=== PATIENT | female | born 1960 | race Caucasian/White ===

== ENCOUNTER → 2018-07-09 09:03 | Outpatient (CLI) | payer MEDICARE, SELFPAY ==
[2018-07-09 09:32] LABS: Add Manual Diff / Slide Review NO; Basophils Absolute Auto 0 /uL (0-100); Basophils Percent Auto 0.5 % (0-2); Eosinophils Absolute Auto 300 /uL (0-450); Hematocrit 38.7 % (36-46); Hemoglobin 12.8 g/dL (12.0-16.0); Lymphocytes Absolute Auto 1700 /uL (1100-4500); Lymphocytes Percent Auto 31.1 % (25-40); Mean Corpuscular HGB Conc 33.1 % (30-36); Mean Corpuscular Hemoglobin 29.3 PG (26-34); Mean Corpuscular Volume 88.4 fL (80-100); Monocytes Absolute Auto 500 /uL (0-900); Monocytes Percent Auto 8.8 % (3-14); Neutrophils Absolute Auto 3000 /uL (1500-7000); Neutrophils Percent Auto 54.6 % (50-75); Platelet Count 227 X10^3/uL (150-400); Red Blood Cell Count 4.37 X10^6/uL (4.0-5.2); White Blood Cell Count 5.5 X10^3/uL (4.5-11.0)
[2018-07-09 10:10] LABS: Alanine Aminotransferase 19 IU/L (9-52); Albumin 4.3 g/dL (3.5-5.0); Albumin Globulin Ratio 1.4 (1.0-2.8); Alkaline Phosphatase 66 U/L (38-126); Aspartate Aminotransferase 20 IU/L (14-36); Bilirubin Total 0.5 mg/dL (0.2-1.3); Blood Urea Nitrogen 17 mg/dL (7-17); Calcium 9.5 mg/dL (8.4-10.2); Carbon Dioxide 30 mmol/L (22-32); Chloride 101 mmol/L (98-107); Cholesterol 199 mg/dL (140-199); Estimated Glomerular Filt Rate 56.9 mL/min (>60); Globulin 3.1 g/dL (1.7-4.1); Glucose 94 mg/dL (70-100); HDL Cholesterol 69 mg/dL (40-60); HEMOLYSIS < 15 (0-50); LDL Cholesterol Calculated 112 mg/dL (<100); Potassium 4.7 mmol/L (3.4-5.1); Sodium 137 mmol/L (137-145); Total Protein 7.4 g/dL (6.3-8.2); Triglycerides 91 mg/dL (35-150)
[2018-07-09 10:36] LABS: Thyroid Stimulating Hormone 1.16 uIU/mL (0.47-4.68)
== END ==
PROVIDERS: PCP Internal Medicine; Visit Provider Internal Medicine
DX: F33.1 Major depressive disorder, recurrent, moderate (principal); F41.1 Generalized anxiety disorder; E78.5 Hyperlipidemia, unspecified
CPT/HCPCS: 36415; 80053; 80061; 84443; 85025

== ENCOUNTER → 2018-10-22 07:51 | Outpatient (CLI) | payer MEDICARE, SELFPAY ==
--- NOTE | 2018-10-22 | DI.MG.S_ITS ---
BILATERAL DIGITAL SCREENING MAMMOGRAM 3D/2D WITH CAD: 10/22/2018 CLINICAL: Routine screening. Family history of breast cancer. Comparison is made to exams dated: 05/21/2016 mammogram, 02/26/2015 mammogram - [facility], 05/26/2013 mammogram, 05/19/2012 mammogram, and 11/15/2010 mammogram - [facility]. The tissue of both breasts is heterogeneously dense. This may lower the sensitivity of mammography. Current study was also evaluated with a Computer Aided Detection (CAD) system. No significant masses, calcifications, or other findings are seen in either breast. There has been no significant interval change. IMPRESSION: NEGATIVE There is no mammographic evidence of malignancy. A 1 year screening mammogram is recommended. This exam was interpreted at Station ID: [id number]. NOTE: For mammograms, a report in lay terms will be sent to the patient. Approximately 15% of breast malignancies will not be visualized mammographically. In the management of a palpable breast mass, a negative mammogram must not discourage biopsy of a clinically suspicious lesion. Electronically Signed By: Jonn douglass/kacie:10/22/2018 12:51:33 letter sent: Normal Exam ACR BI-RADS Category 1: Negative 3341F
== END ==
PROVIDERS: PCP Internal Medicine; Visit Provider Internal Medicine
DX: Z12.31 Encounter for screening mammogram for malignant neoplasm of breast (principal); Z80.3 Family history of malignant neoplasm of breast
CPT/HCPCS: 77063; 77067

== ENCOUNTER → 2019-12-26 08:31 | Outpatient (CLI) | payer MEDICARE, SELFPAY ==
--- NOTE | 2019-12-26 08:43 | DI.MG.S_ITS ---
Patient Name: LIZBETH CROWDER date: 1960 Sex: F Attending Physician: Juan Francisco Indications: Date: 12/26/2019 08:37 At the request of: MARIOLA COHN Procedure: MM screening mammo BI BILATERAL DIGITAL SCREENING MAMMOGRAM 3D/2D WITH CAD: 12/26/2019 CLINICAL: Routine screening. Family history of breast cancer. Comparison is made to exams dated: 10/22/2018 mammogram, 05/21/2016 mammogram, and 02/26/2015 mammogram - [facility]. The tissue of both breasts is heterogeneously dense. This may lower the sensitivity of mammography. Current study was also evaluated with a Computer Aided Detection (CAD) system. No significant masses, calcifications, or other findings are seen in either breast. There has been no significant interval change. IMPRESSION: NEGATIVE There is no mammographic evidence of malignancy. A 1 year screening mammogram is recommended. This exam was interpreted at Station ID: [id number]. NOTE: For mammograms, a report in lay terms will be sent to the patient. Approximately 15% of breast malignancies will not be visualized mammographically. In the management of a palpable breast mass, a negative mammogram must not discourage biopsy of a clinically suspicious lesion. Electronically Signed By: Richard infante/kacie:12/26/2019 09:51:15 letter sent: Normal Exam ACR BI-RADS Category 1: Negative 3341F
== END ==
PROVIDERS: PCP Internal Medicine; Referring Provider Internal Medicine; Visit Provider Internal Medicine
DX: Z12.31 Encounter for screening mammogram for malignant neoplasm of breast (principal); Z80.3 Family history of malignant neoplasm of breast
CPT/HCPCS: 77063; 77067

== ENCOUNTER → 2020-04-12 11:59 | Outpatient (CLI) | payer MEDICARE, SELFPAY ==
--- NOTE | 2020-04-12 | DI.RAD.S_ITS ---
PROCEDURE: XR CERVICAL SPINE 4V OR 5V INDICATIONS: Radiculopathy, cervical region TECHNIQUE: 5 views of the cervical spine acquired. COMPARISON: None. FINDINGS: Bones: No fracture. Levocurvature. Multilevel degenerative endplate sclerosis and spurring. Diffuse facet arthropathy. Moderate narrowing of the C5-C6 and C6-C7 disc spaces. Moderate narrowing of the C7-T1 disc space. On the right, there is severe bony foraminal stenosis at C5-C6 and C6-C7. On the left, there is severe bony foraminal stenosis at C5-C6. Soft tissues: No prevertebral soft tissue swelling. IMPRESSION: Cervical spondylosis and facet arthropathy as above. Bilateral bony foraminal stenoses. Levocurvature Dictated by: Daniel Timmons M.D. on 04/12/2020 at 13:45 Approved by: Daniel Timmons M.D. on 04/12/2020 at 13:47
== END ==
PROVIDERS: PCP Internal Medicine; Referring Provider Physician Assistant; Visit Provider Physician Assistant
DX: M47.22 Other spondylosis with radiculopathy, cervical region (principal); M48.02 Spinal stenosis, cervical region
CPT/HCPCS: 72050

== ENCOUNTER → 2020-05-16 13:30 | Outpatient (CLI) | payer MEDICARE, SELFPAY ==
--- NOTE | 2020-05-16 | DI.MRI.S_ITS ---
PROCEDURE: MR CERVICAL SPINE WO CON INDICATIONS: Radiculopathy, cervical region TECHNIQUE: Noncontrast sagittal T1 spin echo and T2 fast spin echo, sagittal STIR, foraminal oblique sagittal T2 fast spin echo, and axial gradient echo or T2 fast spin echo through the cervical spine. COMPARISON: None. FINDINGS: Image quality: Excellent. Alignment and Curvature: There is normal bony alignment. Bone Marrow: Marrow demonstrates normal overall signal. Spinal Cord: Visualized spinal cord has normal size and signal. No cerebellar tonsillar herniation. Paraspinous Soft Tissues: No paravertebral masses. Prevertebral soft tissues are normal in thickness. C2-C3: Mild disc bulge. Mild right uncovertebral joint hypertrophy. No canal stenosis. Right facet hypertrophy. [id number] right foraminal narrowing. C3-C4: Minimal left paracentral disc protrusion. No canal stenosis. Right facet hypertrophy and uncovertebral joint hypertrophy with moderately severe right foraminal narrowing and impingement on the right C4 nerve root in the right foramen. C4-C5: Posterior disc bulge. Borderline canal stenosis. AP diameter of the canal is 1 cm. Bilateral uncovertebral joint hypertrophy and right greater than left facet hypertrophy. Moderate to severe right foraminal narrowing with impingement on the exiting right C5 nerve root. Moderate left foraminal narrowing with mild flattening deformity on the exiting left C5 nerve root. C5-C6: Disc bulge. Mild canal stenosis. AP diameter of the canal is 9 mm. Bilateral uncovertebral joint hypertrophy and facet hypertrophy. Severe right foraminal narrowing and moderate to severe left foraminal narrowing with bilateral C6 nerve root impingement in the foramina. C6-C7: Disc bulge. Borderline canal stenosis. Bilateral uncovertebral joint hypertrophy and facet hypertrophy. Moderate bilateral foraminal narrowing with mild flattening deformity on the exiting bilateral C7 nerve roots. C7-T1: No canal stenosis or foraminal stenosis. IMPRESSION: 1. Multilevel spondylitic change with multilevel uncovertebral joint hypertrophy and right greater than left facet hypertrophy. 2. Multilevel canal stenosis is borderline at C4-C5, mild at C5-C6, and borderline at C6-C7. 3. Significant multilevel foraminal narrowing as described above. Dictated by: Hugo Modi M.D. on 05/16/2020 at 14:20 Approved by: Hugo Modi M.D. on 05/16/2020 at 15:31
== END ==
PROVIDERS: PCP Internal Medicine; Referring Provider Orthopaedic Surgery Orthopaedic Surgery of the Spine; Visit Provider Orthopaedic Surgery Orthopaedic Surgery of the Spine
DX: M47.22 Other spondylosis with radiculopathy, cervical region (principal); M48.02 Spinal stenosis, cervical region
CPT/HCPCS: 72141

== ENCOUNTER → 2020-06-13 10:11 | Outpatient (CLI) | payer MEDICARE, SELFPAY ==
[2020-06-13 10:49] LABS: Add Manual Diff / Slide Review NO; Basophils Absolute Auto 0 /uL (0-100); Basophils Percent Auto 0.6 % (0-2); Eosinophils Absolute Auto 400 /uL (0-450); Hematocrit 38.1 % (36-46); Hemoglobin 12.6 g/dL (12.0-16.0); Lymphocytes Absolute Auto 1500 /uL (1100-4500); Lymphocytes Percent Auto 24.6 % (25-40); Mean Corpuscular HGB Conc 33.1 % (30-36); Mean Corpuscular Hemoglobin 29.9 PG (26-34); Mean Corpuscular Volume 90.4 fL (80-100); Monocytes Absolute Auto 500 /uL (0-900); Monocytes Percent Auto 7.9 % (3-14); Neutrophils Absolute Auto 3700 /uL (1500-7000); Neutrophils Percent Auto 60.9 % (50-75); Platelet Count 187 X10^3/uL (150-400); Red Blood Cell Count 4.21 X10^6/uL (4.0-5.2); Red Cell Distribution Width 12.7 % (11.6-14.8); White Blood Cell Count 6.1 X10^3/uL (4.5-11.0)
[2020-06-13 11:25] LABS: Blood Urea Nitrogen 15 mg/dL (7-17); Calcium 9.2 mg/dL (8.4-10.2); Carbon Dioxide 32 mmol/L (22-32); Chloride 98 mmol/L (98-107); Estimated Glomerular Filt Rate > 60.0 mL/min (>60); Glucose 78 mg/dL (80-110); HEMOLYSIS < 15 (0-50); Potassium 4.1 mmol/L (3.4-5.1); Sodium 133 mmol/L (137-145)
== END ==
PROVIDERS: PCP Internal Medicine; Referring Provider Orthopaedic Surgery Orthopaedic Surgery of the Spine; Visit Provider Orthopaedic Surgery Orthopaedic Surgery of the Spine
DX: Z01.818 Encounter for other preprocedural examination (principal); Z01.812 Encounter for preprocedural laboratory examination
CPT/HCPCS: 36415; 80048; 85025; 93005; 93010

== ENCOUNTER → 2020-07-16 13:50 | Outpatient (CLI) | payer MEDICARE, SELFPAY ==
[2020-07-16 18:35] LABS: COVID19 -Nasal RAPID Negative (Negative)
== END ==
PROVIDERS: PCP Internal Medicine; Visit Provider Physician Assistant
DX: Z20.822 Contact with and (suspected) exposure to COVID-19 (principal)
CPT/HCPCS: 87635

== ENCOUNTER 2020-07-18 11:24 | Inpatient (IN) | payer MEDICARE, SELFPAY ==
[2020-07-18] VITALS (13 sets, daily range): BP systolic 109–137; BP diastolic 65–82; PULSE 63–77; RESP 12–16; TEMP 35.6–36.8; O2SAT 93–100; BMI 21.9
--- NOTE | 2020-07-18 | DI.RAD.S_ITS ---
PROCEDURE: XR CERVICAL SPINE 2V OR 3V INDICATIONS: C4-5, C5-6, C6-7 ACDF TECHNIQUE: 2 views of the cervical spine were acquired. COMPARISON: [facility], , XR CERVICAL SPINE 4V OR 5V, 04/12/2020, 12:08. FINDINGS: Intraoperative spot fluoroscopic images of the cervical spine demonstrate anterior fusion hardware extending from the level of C4 through C7 with additional disc spacers. The hardware alignment appears satisfactory. IMPRESSION: Spot fluoroscopic images demonstrate anterior spinal fusion hardware extending from C4 through C7. Dictated by: Dav Bettencourt M.D. on 07/18/2020 at 15:44 Approved by: Dav Bettencourt M.D. on 07/18/2020 at 15:46
--- NOTE | 2020-07-18 11:45 | PM.PREOP ---
Pre-operative Note COVID-19 COVID-19 status: Negative Result date/Date tested (Pos, Neg/Pending): 07/16/20 Interval Note History & Physical reviewed/Exam performed by Physician: Yes Changes to H&P: No
[2020-07-18] MEDS: ACETAMINOPHEN 325 MG TABLET 975 MG PO (11:53)
[2020-07-18] MEDS: LACTATED RINGERS 1,000 ML 42 ML IV ×2 (11:55→13:58)
[2020-07-18] MEDS: CLINDAMYCIN 600 MG/50 ML PIGGYBACK 50 MG IV ×2 (12:47→21:52)
--- NOTE | 2020-07-18 13:28 | SUR.OPER ---
Supine, head on gel donut. Arms padded with gel pads, tucked at sides, Drawsheet wrapped under bilateral arms and secured at torso area with towel clips, towel roll under shoulders. Safety belt at thigh. Pillow under knees, gel pad under heels, Legs uncrossed.
[2020-07-18] MEDS: BUPIVACAINE 0.25% W/ EPI (PF) 10 ML VIAL 20 ML INJ (15:18)
--- NOTE | 2020-07-18 15:25 | PM.OP.1 ---
Operative Date/Time/Diagnoses Date of procedure: 07/18/20 Time of procedure: 13:25 Pre-op diagnosis: 1. C4-5, C5-6, C6-7 spinal stenosis 2. C4-5, C5-6, C6-7 spondylosis with radiculopathy Post-op diagnosis: same Procedure & Clinicians Procedure: 1. C4-5 C5-6 C6-7 anterior cervical diskectomy and fusion 2. C4-5 C5-6 C6-7 anterior interbody cage placement 3. C4-5 C5-6 C6-7 anterior instrumentation with plate and screw placement in C4-C5-C6 and C7 vertebrae 4. Utilization of microsurgical technique and operating microscope Same procedure as scheduled: Yes Indications: Patient has been having chronic neck pain and worsening cervical radiculopathy. Patient failed multiple conservative management with worsening pain weakness and numbness in her upper extremity. Patient has been having difficulty performing activity of daily living. After discussing risks benefits of treatment options, patient elected proceed with surgery. Surgeon: Ara Finney Noise Abatement Engineer: Cole Frankel Click Yes if Unassisted: No Anesthesia Type: General Operative Notes Closure Type: primary Specimen(s): none sent Prosthetic devices, grafts, tissues, transplants, or devices: Globus extend plate, PEEK cages Estimated Blood Loss (mL): 50 Blood products transfused: none Procedure in detail: Patient was seen in the preoperative area. Risks and benefits of the surgery was discussed with the patient. Operative consent was obtained and placed in the chart. Patient was then taken to the operative room. Prophylactic antibiotic was given less than 0.5 hr prior to skin incision. General anesthesia was administered. Patient was placed into a supine position on her radiolucent table. Bilateral shoulders were taped down to allow proper C-arm imaging. Anterior cervical area was prepped and draped in a sterile fashion. Time-out was performed at this time. Using lateral C-arm imaging, the level between C4 and C7 was identified and marked on patient's neck. A oblique incision from midline towards medial border of sternocleidomastoid muscle was made. The platysma muscle was incised in line with skin incision. Metzenbaum scissor was used to develop the plane between the medial border of sternocleidomastoid d and the strap muscles medially. The carotid sheath and its contents were identified and protected behind the hand-held retractor during the entire case. The plane between the carotid sheath and strap muscles was developed with Metzenbaum scissors. Dissection was made down to the level of the anterior cervical fascia. Longus colli muscle was incised on the anterior aspect of vertebral bodies bilaterally from C4-C7. Spinal needle was placed into the C4-5 disc space and confirmed with lateral C-arm imaging. Using microsurgical technique and operative microscope, anterior cervical diskectomy was performed at C4-5 C5-6 and C6-7 level. This was done by removing the disc material, removing the anterior and posterior osteophytes posterior longitudinal ligaments along with performing bilateral foraminotomies at all 3 levels. Patient was found to have moderate central and severe foraminal stenosis at all 3 levels. Patient's stenosis was fully decompressed after decompression was completed. After the diskectomy was completed, 3 anterior interbody cages were obtained. The cages were packed with DBM bone grafting material. One cage each along with the bone grafting material was then packed into the interbody spaces from C4-C7 with one cage into each interbody level. After the cages were placed, the anterior cervical plate was stabilized to the C4-C7 vertebrae using 2 screws at each each level. Total 8 screws were placed. After confirming placement of the hardware with AP and lateral C-arm imaging, the screws were locked into the plate using the locking mechanism and torque limiting screwdriver. After the hardware was placed and confirmed with AP and lateral C-arm imaging, the wound was irrigated with sterile normal saline. The platysma muscle and the subcutaneous tissue was closed with 2-0 Vicryl. The skin was closed with 4-0 Monocryl and Steri-Strips. Patient tolerated the procedure well. Patient was transferred recovery room in stable condition. There were no complications. Complications: none Post-operative Condition: stable Disposition: PACU Plan for aftercare: Admit to inpatient hospital
[2020-07-18] MEDS: OXYCODONE IR 5 MG TABLET PO ×2 (16:21→17:34)
--- NOTE | 2020-07-18 16:23 | SUR.PHASEI ---
Report to Gabriel
--- NOTE | 2020-07-18 16:57 | SUR.PHASEI ---
1640 Pt c/o being warm. Temp checked. WNL. Cool washcloths and icepack applied. Pt now states feeling better.
--- NOTE | 2020-07-18 16:58 | SUR.PHASEI ---
Pt up to floor and bedside report with GARRY Rios. Care assumed of patient.
[2020-07-18] MEDS: SODIUM CHLORIDE 0.9% 1,000 ML 100 ML IV (17:34)
--- NOTE | 2020-07-18 18:40 | SUR.PHASEI ---
late entry, infomation relayed by GARRY Smalls to be documented. Pt's bilat. UE director of restaurant strength equal/strong once awake, CMS+ bilat. cap refill less than 2 sec. denies numbness and tingling, equal and strong radial pulses. these findings were consistent throughout pt's stay in phase 1.
[2020-07-18] MEDS: clonazePAM 0.5 MG TABLET 1 MG PO (21:53)
[2020-07-18] MEDS: DOCUSATE 100 MG CAPSULE PO (21:53)
[2020-07-18] MEDS: SENNOSIDES 8.6 MG TABLET 17.2 MG PO (21:53)
[2020-07-18] MEDS: PROPRANOLOL 10 MG TABLET 15 MG PO (21:54)
[2020-07-18] MEDS: PRAZOSIN 1 MG CAPSULE PO (22:01)
[2020-07-19] VITALS: BP 91/51; PULSE 74; RESP 16; TEMP 36.1; O2SAT 97
[2020-07-19] MEDS: OXYCODONE IR 5 MG TABLET PO ×3 (01:09→11:19)
[2020-07-19 04:23] VITALS: BP 130/76; PULSE 64; RESP 16; TEMP 36.1; O2SAT 96
[2020-07-19] MEDS: CLINDAMYCIN 600 MG/50 ML PIGGYBACK 50 MG IV (04:40)
[2020-07-19] MEDS: SODIUM CHLORIDE 0.9% 1,000 ML 100 ML IV (04:40)
[2020-07-19] MEDS: clonazePAM 0.5 MG TABLET 1 MG PO (07:53)
[2020-07-19] MEDS: DOCUSATE 100 MG CAPSULE PO (07:53)
[2020-07-19 08:00] VITALS: BP 102/54; PULSE 72; RESP 18; TEMP 36.2; O2SAT 98
[2020-07-19] MEDS: PROPRANOLOL 10 MG TABLET PO (08:13)
[2020-07-19] MEDS: DULOXETINE 30 MG CAPSULE PO (08:13)
[2020-07-19] MEDS: lamoTRIgine 100 MG TABLET PO (08:13)
[2020-07-19] MEDS: SODIUM CHLORIDE 0.9% FLUSH 10 ML IV (08:59)
--- NOTE | 2020-07-19 09:35 | OT.IP.EVAL ---
Current Diagnoses Other spondylosis with radiculopathy, cervical region (07/18/20) Spinal stenosis, cervical region (07/18/20) Surgery Performed Operation Date: 07/18/20 13:15 Actual Procedures p C4-5,C5-6,C6-7 ACDF W/ anterior instrumentation - Ara Finney MD Past Medical History (Last Updated 07/18/20 @ 11:37 by Ayala Doty, RN) Acarophobia Ataxia Coccydynia COPD (chronic obstructive pulmonary disease) Cystic acne Depression Eczema Essential tremor Fibromyalgia Former smoker Headache, migraine Hypercholesterolemia Insomnia OCD (obsessive compulsive disorder) Orthostatic hypotension Osteoarthritis Osteopenia Renal insufficiency Sinusitis Spinal stenosis, cervical region Spondylosis of cervical spine Vitamin D deficiency Surgical History (Last Updated 07/18/20 @ 11:29 by Ayala Doty, RN) H/O shoulder surgery History of hysterectomy History of tubal ligation Occupational Therapy Inpatient Evaluation/Re-Eval M1 PT/OT-IP Prior Functional Status Start: 07/19/20 11:58 Freq: NEEDED Status: Active Protocol: Document 07/19/20 08:52 [facility] (Rec: 07/19/20 12:17 [facility] [id number]) Medical Review Prior Functional Status Medical History Reviewed Yes Communication Independent Mobility and Gait Independent per pt with no devices. Activities of Daily Living and IADL's Independent for all ADl, IADL, and drives. Social History Household Members family Living Arrangements House Number of Floors (Floors) Two Floors Number of Stairs To Enter/Railing? 3 steps to with no rails to get into the house and pt lives downstairs and her daughter and grand kids live upstairs. Pt has 4 steps with no rails but able to reach out to the corona for balance. Home Environment Standard Height Toilet,Tub/ Shower Home Equipment Hand Held Shower M2 OT-IP Current Condition Start: 07/19/20 11:58 Freq: Status: Active Protocol: Document 07/19/20 08:52 [facility] (Rec: 07/19/20 12:17 [facility] [id number]) Occupational Therapy Current Condition Current Condition Evaluation Date 07/19/20 Treatment Diagnosis Cervical stenosis, s/p C4-5,C5 -6, C6-7 ACDF Post Operative Precautions Cervical Spine Precautions Soft Collar for Comfort,No Heavy Lifting,Log Roll M3 OT- IP Subjective and Pain Start: 07/19/20 11:58 Freq: Status: Active Protocol: Document 07/19/20 08:52 [facility] (Rec: 07/19/20 12:17 [facility] [id number]) OT- Subjective Occupational Therapy Visit Type Type Initial Evaluation Visit Start Time 08:52 Visit Stop Time 09:35 Total Visit Minutes 44 Occupational Therapy Visit Comments Patient Comments Pt agreed to get up for OT eval. Patient/Caregiver Goals To go home. M4 OT- IP ADL's Start: 07/19/20 11:58 Freq: Status: Active Protocol: Document 07/19/20 08:52 [facility] (Rec: 07/19/20 12:17 [facility] [id number]) OT [id number] Comments OT Self-Feeding Comments Educated regarding sitting upright to eat, eat softer foods initially, chew food thoroughly, and alternate between solids and liquids. Pt also given information regarding swallowing after ACDF sx. OT ADL-Grooming General Evaluation Grooming Ability Standby Assistance OT ADL-Oral Care Comments Oral Care Comments Educated to spit into a cup to best follow her cervical precautions. OT ADL-Dressing General Eval Upper Body Dressing Ability Independent Lower Body Dressing Ability Standby Assistance Comments OT Dressing Comments SBA while pt standing to pull up her pants. Pt able needing initial vc to be able to put on her soft collar snug enough as prior it was on too loose. OT ADL-Toileting General Evaluation Toileting Ability Independent OT ADL-Bathing Comments OT Bathing Comments Pt not wanting to shower at this time. M5 OT- IP IADL's Start: 07/19/20 11:58 Freq: Status: Active Protocol: Document 07/19/20 08:52 [facility] (Rec: 07/19/20 12:17 [facility] [id number]) OT-Instrumental Activities of Daily Living Home Safety Awareness Awareness of Need for Assistance at Home Good Awareness Ability to Problem Solve Emergency Able to Problem Solve Situations Home Safety Comments Pt's daughter will be assist pt with all needs at needed for IADl needs. Meal Preparation Meal Preparation Caregiver Provides Assist Pet Stylist Pet Stylist Caregiver Provides Assist M6 OT- IP Functional Cognition Start: 07/19/20 11:58 Freq: Status: Active Protocol: Document 07/19/20 08:52 [facility] (Rec: 07/19/20 12:17 [facility] [id number]) Cognitive Factors Limiting Selfcare Function Cognitive Ability Level of Alertness Alert Patient Orientation Name,Place,Situation Attention Span Ability Capable of Focused Attention, Capable of Sustained Attention Ability to Follow Commands Able to Follow Multi-Step Commands Memory Description No Deficits Noted Safety Awareness Underestimates Need for Assistance Problem Solving Ability No deficits Noted Cognitive Comments Cognitive Assessment Comments Pt mainly needing vc to slow down and also needing repetitive vc for log rolling to be able to get into and out of the bed in order to best follow her cervical precautions. OT- Vision and Hearing OT- Hearing Assessment OT- Hearing Assessment WFL OT- Vision Assessment Visual Acuity Glasses All The Time M7 OT- IP Mobility and Balance Start: 07/19/20 11:58 Freq: Status: Active Protocol: Document 07/19/20 08:52 [facility] (Rec: 07/19/20 12:17 [facility] [id number]) OT- Bed Mobility Assessment Rolling Level of Assistance Standby Assistance Supine to Sit Supine to Sit Assist Standby Assistance Sit to Supine Sit to Supine Assist Standby Assistance OT-Transfer Assessment Sit to and From Stand Sit to and from Stand Independent Transfers Transfer Ability Independent Technique Transfer Destination Bed,Chair Transfer Technique Stand Step Pivot Devices Transfer Assistive Devices Gait Belt Comments Mobility Comments Pt independent while in the room for level surfaces. OT- Balance Assessment Sitting Balance and Reactions Static Sitting Balance Ability Normal Dynamic Sitting Balance Ability Normal Standing Balance and Reactions Static Standing Balance Ability Normal Dynamic Standing Balance Ability Good M8 OT- IP Objective Assessments Start: 07/19/20 11:58 Freq: Status: Active Protocol: Document 07/19/20 08:52 [facility] (Rec: 07/19/20 12:17 [facility] [id number]) OT Gross Range of Motion Upper Extremity Range of Motion Assessment Within Functional Limits OT-Muscle Tone Assessment Muscle Tone WNL Yes OT Sensation Assessment Comments Summary Comments Pt still complaining of tingling with right arm. M9 OT- IP Assessment and Plan Start: 07/19/20 11:58 Freq: Status: Active Protocol: Document 07/19/20 08:52 [facility] (Rec: 07/19/20 12:17 [facility] [id number]) OT Summary Assessment and Plan Potential Rehabilitation Potential Excellent Analytic Complexity at Evaluation Low Summary OT Impairments Pain Progress Towards Goals Progressing Toward Goals Assessment Summary Pt low complexity and main barrier are pain and needing vc to slow down. Pt has a supportive family to be able to assist her at house as needed. Suggested that pt may need a shower chair for home use. Pt to go home when medically stable. Goals Bathing Goal Independent Patient/Caregiver Education Goal Demonstrate Post-Op Precautions Days to Meet Goals 1 Frequency of Treatment Frequency Of Treatment Once a Day Treatment Plan OT Treatment Plan ADL Training,Functional Cognition Training,Functional Mobility,Patient/Family Education,Discharge Planning Other Treatment Recommendations and Next Shower if still here. Treatment Focus Discharge Recommendations OT Discharge Recommendations Home with Assistance Home Equipment Needs shower chair Transportation Needs at Discharge Private Vehicle
--- NOTE | 2020-07-19 09:39 | PM.DS.1 ---
History of Present Illness History of Present Illness Date Patient Seen: 07/19/20 Time Patient Seen: 09:39 Chief complaint: IP *390 copay* Narrative: Please refer to previously documented HPI and chart. Discharge Providers Provider Date of admission: 07/18/20 11:24 Discharge Date: 07/19/20 Primary care physician: Shereen Chicas MD Consults: 07/18/20 16:58 Consult to Occupational Therapy Evaluate & Treat Comment: Physician Instructions: Evaluate and treat Consult to Physical Therapy Evaluate & Treat Comment: Physician Instructions: Evaluate and Treat Discharge provider: Cole Frankel PA-C Summary Hospital Course Discharge Diagnosis: 1. C4-5, C5-6, C6-7 spinal stenosis 2. C4-5, C5-6, C6-7 spondylosis with radiculopathy 3. Status post C4-5 C5-6 C6-7 anterior cervical diskectomy and fusion, C4-5 C5-6 C6-7 anterior interbody cage placement, C4-5 C5-6 C6-7 anterior instrumentation with plate and screw placement in C4-C5-C6 and C7 vertebrae Utilization of microsurgical technique and operating microscope Hospital Course: 60-year-old female with the above-listed diagnoses was appropriately consented for the above listed procedure presenting to the OR undergoing said procedure without difficulty or complication then admitted for rehabilitation convalescing without significant issue and stable for discharge home safely today after evaluation noting ability to void without difficulty and denying intractable pain or dysfunction including but not limited to fever, chills, chest pain and shortness of breath. The patient and or family verbalized understanding postoperative care instructions and plan for follow-up for re-evaluation in 2 weeks. Status at Discharge Cognitive/behavioral status at discharge: oriented Functional status at discharge: independent ambulation Overall status at discharge: patient is not back to baseline Time Spent with Patient Time spent: Less than 30 minutes Exam Vital Signs (past 8 hours): - 07/19/20 04:23 07/19/20 08:00 Temperature 97.0 F L 97.2 F L Pulse Rate 64 72 Respiratory Rate 16 18 Blood Pressure 130/76 102/54 L Pulse Oximetry 96 98 Oxygen Delivery Method Nasal Cannula Oxygen Flow Rate 0 Objective ECG Impression: Well-developed well nourished 60-year-old female observed resting comfortably wearing soft cervical collar in no apparent distress, alert and oriented x3 with normal heart rate and inspiratory effort. Their dressing was clean, dry and intact. The patient's extremities were neurovascularly intact without signs or symptoms of DVT. [facility] Medical History (Updated 07/18/20 @ 11:37 by Ayala Doty RN) Acarophobia Ataxia Coccydynia COPD (chronic obstructive pulmonary disease) Cystic acne Depression Eczema Essential tremor Fibromyalgia Former smoker Headache, migraine Hypercholesterolemia Insomnia OCD (obsessive compulsive disorder) Orthostatic hypotension Osteoarthritis Osteopenia Renal insufficiency Sinusitis Spinal stenosis, cervical region Spondylosis of cervical spine Vitamin D deficiency Surgical History (Updated 07/18/20 @ 11:29 by Ayala Doty RN) H/O shoulder surgery History of hysterectomy History of tubal ligation Social History household members: family Smoking Status: Former smoker alcohol intake: never Discharge Assessment & Plan Assessment and Plan Assessment: 1. C4-5, C5-6, C6-7 spinal stenosis 2. C4-5, C5-6, C6-7 spondylosis with radiculopathy 3. Status post C4-5 C5-6 C6-7 anterior cervical diskectomy and fusion, C4-5 C5-6 C6-7 anterior interbody cage placement, C4-5 C5-6 C6-7 anterior instrumentation with plate and screw placement in C4-C5-C6 and C7 vertebrae Utilization of microsurgical technique and operating microscope Plan of Treatment: Discharge home today Postoperative cervical fusion care protocols apply Follow-up in 2 weeks for re-evaluation Discharge Plan Discharge Plan Patient Disposition: Home Discharge orders & Medications Prescriptions: New acetaminophen 325 mg Tablet 650 mg PO Q6HR PRN (Reason: Pain, Mild (1-3)) Qty: 60 RF: 0 oxycodone 5 mg Tablet 5 mg PO Q3HR PRN (Reason: Pain, Moderate (4-6)) Qty: 60 RF: 0 ondansetron 4 mg tablet,disintegrating 4 mg PO Q8H 4 Days Qty: 12 RF: 0 Continued propranolol 20 mg tablet See Rx Instructions PO BID Qty: 225 RF: 6 lamotrigine 100 mg tablet 100 mg PO DAILY Qty: 90 RF: 3 doxycycline hyclate 100 MG tablet 100 mg PO QDAY Qty: 0 RF: 0 albuterol sulfate [Ventolin HFA] 90 MCG/PUFF HFA aerosol inhaler 2 puff INH Q4-6H PRN (Reason: Wheezing) Qty: 0 RF: 0 sumatriptan succinate 100 MG tablet 100 mg PO TID PRN (Reason: Headache) Qty: 0 RF: 0 cholecalciferol (vitamin D3) [Vitamin D3] 1,000 UNIT tablet 1,000 iu PO QDAY Qty: 0 RF: 0 cyanocobalamin (vitamin B-12) [Vitamin B-12] 500 MCG tablet 1,000 mg OR QDAY Qty: 0 RF: 0 magnesium oxide 500 MG tablet 500 mg PO HS Qty: 0 RF: 0 duloxetine 60 mg capsule,delayed release(DR/EC) 60 mg PO QDAY Qty: 90 RF: 2 duloxetine 30 mg capsule,delayed release(DR/EC) 30 mg PO QDAY Qty: 90 RF: 2 clonazepam 1 mg tablet 1 mg PO BID Qty: 60 RF: 2 prazosin [Minipress] 1 mg capsule 1 mg PO BEDTIME RF: 0 Discontinued tramadol 50 mg tablet 50 mg PO Q12H PRN (Reason: neck pain) RF: 0 Follow up/Referrals: Ara Finney MD [Physician] - None (Follow up in 2 weeks) Shereen Chicas MD [Primary Care Provider] - Diet/Activity/Treatments Diet: Diet as Tolerated Activity: Avoid excess bend, lift & twist Skin/Wound/Dressing Care Report to your healthcare provider any signs of infection, such as:: chills, fever, night sweats, increased pain, unusual drainage and unusual redness Dressing: Keep clean, dry and intact Visit Report/Discharge Packet Instructions: DI for Heart Failure, DI for Prescription Opioid Use, DI for Anterior Cervical Discectomy and Fusion Stand Alone Forms: Surgery Discharge Discharge Data Primary Care Provider: Shereen Chicas Quality VTE Deep Vein Thrombosis/Pulmonary Embolism Present on Admission: No
--- NOTE | 2020-07-19 10:30 | CM.IDA ---
Initial DCP Assessment Note Pt is a 60 yo female, resident of [place], now POD#1 from cervical surgery w/ Dr Finney PCP: Shereen Chicas Payer: [employer] Reviewed chart, pt discussed in multidisciplinary rounds this morning. Therapy has cleared pt for return home w/family to assist and pt has planned for home, DC order from Ortho has already been initiated this morning. 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 Lynda Calle, DOUBLE SPINDLE SHAPER OPERATOR
--- NOTE | 2020-07-19 11:12 | PC.NURSE ---
Pt is dressed and ready for discharge home with daughter. Has worked with and been cleared by O.T. Waiting to be cleared by PT. IV removed. Went over d/c instructions with Pt -discussed d/c meds, time of last dose, reviewed stroke education, reminded Pt to avoid bending, lifting, or twisting. Reminded Pt not to drive while on narcotics and to drink plenty of fluids to prevent constipation or dehydration. Soft collar for comfort. Pt denies further questions and is ready to be taken out to daughter when she arrives and Pt is cleared by PT.
--- NOTE | 2020-07-19 11:21 | PT.IIE ---
Current Diagnoses Other spondylosis with radiculopathy, cervical region (07/18/20) Spinal stenosis, cervical region (07/18/20) Surgery Performed Operation Date: 07/18/20 13:15 Actual Procedures p C4-5,C5-6,C6-7 ACDF W/ anterior instrumentation - Ara Finney MD Surgical History (Last Updated 07/18/20 @ 11:29 by Ayala Doty, RN) H/O shoulder surgery History of hysterectomy History of tubal ligation Medical History (Last Updated 07/18/20 @ 11:37 by Ayala Doty, RN) Acarophobia Ataxia Coccydynia COPD (chronic obstructive pulmonary disease) Cystic acne Depression Eczema Essential tremor Fibromyalgia Former smoker Headache, migraine Hypercholesterolemia Insomnia OCD (obsessive compulsive disorder) Orthostatic hypotension Osteoarthritis Osteopenia Renal insufficiency Sinusitis Spinal stenosis, cervical region Spondylosis of cervical spine Vitamin D deficiency Physical Therapy Inpatient Evaluation/Re-Eval M1 PT/OT-IP Prior Functional Status Start: 07/19/20 11:58 Freq: NEEDED Status: Active Protocol: Document 07/19/20 08:52 [facility] (Rec: 07/19/20 12:17 [facility] [id number]) Medical Review Prior Functional Status Medical History Reviewed Yes Communication Independent Mobility and Gait Independent per pt with no devices. Activities of Daily Living and IADL's Independent for all ADl, IADL, and drives. Social History Household Members family Living Arrangements House Number of Floors (Floors) Two Floors Number of Stairs To Enter/Railing? 3 steps to with no rails to get into the house and pt lives downstairs and her daughter and grandkids live upstairs. Pt has 4 steps with no raiils but able to reach out to the wall for balance. Home Environment Standard Height Toilet,Tub/ Shower Home Equipment Hand Held Shower M1 PT/OT-IP Prior Functional Status Start: 07/19/20 12:51 Freq: NEEDED Status: Active Protocol: Document 07/19/20 11:21 AB (Rec: 07/19/20 13:07 AB [email or web address]) Medical Review Prior Functional Status Communication able to make needs known Mobility and Gait pt stated that she is independent with all mobilities and ambulation without AD but stated that she is unsteady and might need something for balance Activities of Daily Living and IADL's per OT notes: Independent for all ADl, IADL, and drives. Social History Household Members family Living Arrangements House Number of Floors (Floors) Two Floors Number of Stairs To Enter/Railing? pt stated that she has 3 steps to enter with R rail bed room with down stairs and has 4 steps without rails; stated that she leans against the wall and to up sideways Home Environment Standard Height Toilet,Tub/ Shower Home Equipment Hand Held Shower,Grab Bars Near Toilet,Grab Bars In Shower Additional Social History Comment pt stated that she has an adjustable bed M2 PT-IP Current Condition Start: 07/19/20 12:51 Freq: NEEDED Status: Active Protocol: Document 07/19/20 11:21 AB (Rec: 07/19/20 13:07 AB [email or web address]) Physical Therapy Current Condition Current Condition Evaluation Date 07/19/20 Treatment Diagnosis C4-C7 ACDF; difficulty in walking Onset Date 07/18/20 Precautions Cervical Spine Precautions Soft Collar for Comfort,No Heavy Lifting,Log Roll M3 PT-IP Subjective Start: 07/19/20 12:51 Freq: NEEDED Status: Active Protocol: Document 07/19/20 11:21 AB (Rec: 07/19/20 13:07 AB [email or web address]) Subjective Physical Therapy Visit Type Type Initial Evaluation Visit Start Time 11:21 Visit Stop Time 11:45 Total Visit Minutes 24 Number of SAFETY ADMIN ASSISTANT Visits 0 Physical Therapy Visit Comments Patient Comments pt is agreeable to do PT Therapy Pain Assessment Pain When Pain Assessed At Rest Pain Present Pain Present Pain Reported Location Right clavicle area to right arm Intensity 9 Scale Used Numeric (0 - 10) Pain Management Techniques Modification of Treatment, Timing of Activity with Medications M4 PT-IP Mobility and Gait Start: 07/19/20 12:51 Freq: NEEDED Status: Active Protocol: Document 07/19/20 11:21 AB (Rec: 07/19/20 13:07 AB [email or web address]) PT-Bed Mobility Assessment Rolling Type of Rolling Log Rolling Level of Assist Standby Assistance Supine to Sit Supine to Sit Standby Assistance Sit to Supine Sit to Supine Standby Assistance PT-Transfer Assessment Sit to and From Stand Sit to and from Stand Standby Assistance,Contact Guard Assistance Equipment Transfer Assistive Device None,Gait Belt Orthotic/Prosthetic Devices or Brace: Yes Transfers Transfer Destination Bed,Chair Transfer Technique ambulated without AD Transfer Ability Level of Assist Standby Assistance Comments Mobility Comments pt sitting on chair. reviewed cervical precautions. pt completed sit to stand from chair SBA and ambulated to the bed without AD sBA to occasional CGA with (+) LOB to the R but able to catch self. completed log roll supine <> sit SBA. ambulated towards the sink without AD SBA. completed soft collar management and pt was able to manage collar. pt completed ambulation towards the stairs ~ 150 ft without AD SBA to occasionally CGA and cues for safety and slowing down. presents with decrease ANNIA and RLE tends to cross midline. educated on increase ANNIA and placement of RLE. completed up/down stair using R rail SBA. completed up/down stairs without rails requiring CGA to min A with (+ ) LOB but with recovery. educated pt on COG, weight shifting, trunk control and LE weight bearing control. completed again without rails CGA and pt is steadier. pt stated that there are corona on B side of the stairs and she usually leans again one side and side steps for stair climbing. educated pt on safety and to hold on to corona for balance. pt ambulated back to her room 150 ft without AD SBA. sat back on chair. call light and table placed within reach. Gait Assessment Gait Gait Assistance Required: Standby Assistance Distance (Feet) 150 Able to Maintain Weight Bearing Status Yes During Gait Assistive Devices Assistive Device None,Gait Belt Orthotic/Prosthetic Devices or Brace: Yes Gait Deviations General Gait Pattern Antalgic,Narrow Based Gait Factors Limiting Gait Function Factors Limiting Gait Function Decreased Activity Tolerance, Decreased Strength,Limited Range of Motion,Pain,Poor Balance,Poor Safety Awareness Comments Gait Comments pls refer to mobility section for details Stair Climbing Assessment Evaluation Level of Assist On Stairs Standby Assistance,Contact Guard Assistance Devices Stair Climbing Assistive Devices None,Right Railing Technique/Endurance Stair Climbing Direction Ascend and Descend Stair Climbing Technique Step to Step Number of Steps Climbed 3 Query Text: Stair Climbing Set # Repetitions (reps) 3 Comments Stair Climbing Comments pls refer to mobility section for details PT-Balance Assessment Sitting Balance and Reactions Static Sitting Balance Ability Good Dynamic Sitting Balance Ability Good Standing Balance and Reactions Static Standing Balance Ability Good Dynamic Standing Balance Ability Fair Device Used without AD M5 PT-IP Objective Assessments Start: 07/19/20 12:51 Freq: NEEDED Status: Active Protocol: Document 03/25/21 11:21 AB (Rec: 07/19/20 13:07 [email or web address]) Orientation Orientation/Cognition Level of Alertness Alert Orientation Name,Place,Situation Language Function Ability No Deficits Noted Safety Awareness Decreased Safety Awareness Memory Description Short Term Impaired Gross Range of Motion Lower Extremity ROM Assessment Within Functional Limits Strength Lower Extremity Strength Assessment Within Functional Limits Coordination Assessment Gross Coordination Gross Coordination WNL Sensation Assessment Sensation Gross Sensation Right UE Impaired Sensation Description Numbness Comments Sensation Comments c/o R fingertips numbness Muscle Tone Muscle Tone WNL Yes M6 PT-IP Treatment Start: 07/19/20 12:51 Freq: NEEDED Status: Active Protocol: Document 07/19/20 11:21 AB (Rec: 07/19/20 13:07 [email or web address]) Physical Therapy Treatment Education Education Provided Precautions Brace Education [place],Patient Other Treatments Other Treatment Performed completed soft collar management M7 PT-IP Assessment and Plan Start: 07/19/20 12:51 Freq: NEEDED Status: Active Protocol: Document 07/19/20 11:21 AB (Rec: 07/19/20 13:07 [email or web address]) PT Summary Assessment and Plan Potential Rehabilitation Potential Good Status of Condition at Evaluation Stable Summary Impairments Pain,ROM,Strength,Balance, Coordination,Sensation, Cognition,Bed Mobility, Transfers,Gait,Activity Tolerance Assessment Summary pt requiring SBA to occasionally CGA with mobility without AD. pt stated that she has balance issues from before. educated pt on safety and having rails on stairs if possible. stated that she will tell her daughter again. informed pt that she will benefit from outpt PT to address balance issues after recovering from cervical surgery and pt agreed. pt plans to go home and family to assist her as needed. Goals Bed Mobility Goal Independent Transfer Goal Independent Gait Goal Independent Gait Distance 250 Other Goals up/down 3 steps R rail SBA up/down 4 steps without rails SBA Days to Meet Goals 3 Frequency of Treatment Frequency Of Treatment Twice a Day Treatment Plan Physical Therapy Treatment Plan Bed Mobility Training,Transfer Training,Gait Training, Therapeutic Exercise,Balance Retraining,Post Op Education, Discharge Planning,Hot or Cold Pack,Neuromuscular Re-ed, Coordination Retraining,Manual Therapy Precautions Cervical Spine Precautions Soft Collar for Comfort,No Heavy Lifting,Log Roll Recommendations To Nursing Amount of Assist Needed 1 Person Assist Discharge Recommendations PT Discharge Recommendations Home with Assistance, Outpatient PT Transportation Needs at Discharge Private Vehicle
--- NOTE | 2020-07-19 11:57 | PC.NURSE ---
Pt out via w/c by COLORED LEATHER SETTER to pov with daughter and all belongings.
== END 2020-07-19 11:58 | disposition home or self-care (01) | DRG 473 ==
PROVIDERS: Admitting Provider Orthopaedic Surgery Orthopaedic Surgery of the Spine; PCP Internal Medicine; Referring Provider Orthopaedic Surgery Orthopaedic Surgery of the Spine; Visit Provider Orthopaedic Surgery Orthopaedic Surgery of the Spine
PROC: 0RG20A0 Fusion of 2 or more Cervical Vertebral Joints with Interbody Fusion Device, Anterior Approach, Anterior Column, Open Approach (ICD-10-PCS; principal; 2020-07-18 13:15)
DX: M47.22 Other spondylosis with radiculopathy, cervical region (principal); M48.02 Spinal stenosis, cervical region; M79.7 Fibromyalgia; F32.9 Major depressive disorder, single episode, unspecified; J44.9 Chronic obstructive pulmonary disease, unspecified; F41.9 Anxiety disorder, unspecified; F43.10 Post-traumatic stress disorder, unspecified; I10 Essential (primary) hypertension; Z87.891 Personal history of nicotine dependence; Z20.822 Contact with and (suspected) exposure to COVID-19
CPT/HCPCS: 72040; 76000; 87635; 97161; 97165; 97530; 97535; C1776; C9803; A9270; J0330; J1100; J1170; J2250; J2405; J2704; J3010

== ENCOUNTER → 2020-11-06 08:37 | Outpatient (CLI) | payer MEDICARE, SELFPAY ==
[2020-10-01 11:51] VITALS: BMI 21.9
[2020-11-06 09:30] LABS: Add Manual Diff / Slide Review NO; Basophils Absolute Auto 0 /uL (0-100); Basophils Percent Auto 0.8 % (0-2); Eosinophils Absolute Auto 200 /uL (0-450); Eosinophils Percent Auto 2.9 % (2-4); Hematocrit 36.7 % (36-46); Hemoglobin 12.3 g/dL (12.0-16.0); Lymphocytes Absolute Auto 1000 /uL (1100-4500); Lymphocytes Percent Auto 17.2 % (25-40); Mean Corpuscular HGB Conc 33.6 % (30-36); Mean Corpuscular Hemoglobin 30.8 PG (26-34); Mean Corpuscular Volume 91.7 fL (80-100); Monocytes Absolute Auto 500 /uL (0-900); Monocytes Percent Auto 8.4 % (3-14); Neutrophils Absolute Auto 4000 /uL (1500-7000); Neutrophils Percent Auto 70.7 % (50-75); Platelet Count 229 X10^3/uL (150-400); Red Blood Cell Count 4.01 X10^6/uL (4.0-5.2); Red Cell Distribution Width 14.7 % (11.6-14.8); White Blood Cell Count 5.7 X10^3/uL (4.5-11.0)
[2020-11-06 09:47] LABS: Alanine Aminotransferase 12 IU/L (<35); Albumin 3.9 g/dL (3.5-5.0); Albumin Globulin Ratio 1.6 (1.0-2.8); Alkaline Phosphatase 81 U/L (38-126); Aspartate Aminotransferase 18 IU/L (14-36); BUN Creatinine Ratio 13.3 (6-22); Bilirubin Total 0.4 mg/dL (0.2-1.3); Blood Urea Nitrogen 11 mg/dL (7-17); Calcium 9.5 mg/dL (8.4-10.2); Carbon Dioxide 28 mmol/L (22-32); Chloride 102 mmol/L (98-107); Estimated Glomerular Filt Rate > 60.0 mL/min (>60); Globulin 2.5 g/dL (1.7-4.1); Glucose 71 mg/dL (80-110); HEMOLYSIS < 15 (0-50); Potassium 4.8 mmol/L (3.4-5.1); Sodium 137 mmol/L (137-145); Total Protein 6.4 g/dL (6.3-8.2)
== END ==
PROVIDERS: PCP Internal Medicine; Referring Provider Internal Medicine Rheumatology; Visit Provider Internal Medicine Rheumatology
DX: Z79.899 Other long term (current) drug therapy (principal); M06.4 Inflammatory polyarthropathy
CPT/HCPCS: 36415; 80053; 85025

== ENCOUNTER → 2021-04-05 08:01 | Outpatient (CLI) | payer MEDICARE, SELFPAY ==
[2020-10-01 11:51] VITALS: BMI 21.9
[2021-04-05 08:42] LABS: Add Manual Diff / Slide Review NO; Basophils Absolute Auto 0 /uL (0-100); Basophils Percent Auto 0.8 % (0-2); Eosinophils Absolute Auto 200 /uL (0-450); Eosinophils Percent Auto 3.3 % (2-4); Hematocrit 37.2 % (36-46); Hemoglobin 12.3 g/dL (12.0-16.0); Lymphocytes Absolute Auto 1700 /uL (1100-4500); Lymphocytes Percent Auto 33.2 % (25-40); Mean Corpuscular HGB Conc 33.1 % (30-36); Mean Corpuscular Volume 90.4 fL (80-100); Monocytes Absolute Auto 500 /uL (0-900); Monocytes Percent Auto 9.5 % (3-14); Neutrophils Absolute Auto 2800 /uL (1500-7000); Neutrophils Percent Auto 53.2 % (50-75); Platelet Count 235 X10^3/uL (150-400); Red Blood Cell Count 4.12 X10^6/uL (4.0-5.2); Red Cell Distribution Width 15.4 % (11.6-14.8); White Blood Cell Count 5.2 X10^3/uL (4.5-11.0)
[2021-04-05 09:17] LABS: Alanine Aminotransferase 10 IU/L (<35); Albumin 4.3 g/dL (3.5-5.0); Albumin Globulin Ratio 1.7 (1.0-2.8); Alkaline Phosphatase 64 U/L (38-126); Aspartate Aminotransferase 19 IU/L (14-36); BUN Creatinine Ratio 12.6 (6-22); Bilirubin Total 0.4 mg/dL (0.2-1.3); Blood Urea Nitrogen 13 mg/dL (7-17); C-Reactive Protein Quant < 0.5 mg/dL (<1.0); Calcium 9.7 mg/dL (8.4-10.2); Carbon Dioxide 33 mmol/L (22-32); Chloride 99 mmol/L (98-107); Estimated Glomerular Filt Rate 54.7 mL/min (>60); Globulin 2.6 g/dL (1.7-4.1); Glucose 89 mg/dL (80-110); HEMOLYSIS < 15 (0-50); Potassium 3.9 mmol/L (3.4-5.1); Sodium 138 mmol/L (137-145); Total Protein 6.9 g/dL (6.3-8.2)
== END ==
PROVIDERS: PCP Internal Medicine; Referring Provider Internal Medicine Rheumatology; Visit Provider Internal Medicine Rheumatology
DX: M06.4 Inflammatory polyarthropathy (principal); Z79.899 Other long term (current) drug therapy
CPT/HCPCS: 36415; 80053; 85025; 86140